=== PATIENT | male | born 1945 | race Caucasian/White ===

== ENCOUNTER 2016-11-25 09:16 | Outpatient (CLI) | payer MEDICARE ==
[2016-11-25 09:46] LABS: Anion Gap 18 mmol/L (10-20); BUN (Urea Nitrogen) 16 mg/dL (8.4-25.7); Calc. Creatinine Clearance 0 mL/min (70-130); Calcium 9.7 mg/dL (7.8-10.44); Carbon Dioxide 23 mmol/L (23-31); Chloride 100 mmol/L (98-107); Estimated GFR-MDRD 88; Glucose 113 mg/dL (83-110); Sodium 137 mmol/L (136-145)
== END 2016-11-25 09:17 | disposition home or self-care (01) ==
LOC: MADLAB 09:16
PROVIDERS: ATTEND Internal Medicine Cardiovascular Disease
DX: I10 Essential (primary) hypertension (principal)
CPT/HCPCS: 36415; 80048

== ENCOUNTER 2020-12-03 10:56 | Outpatient (CLI) | payer MEDICARE ==
[2020-12-03 11:49] LABS: Anion Gap 15 mmol/L (10-20); BUN (Urea Nitrogen) 15 mg/dL (8.4-25.7); Calc. Creatinine Clearance 0 mL/min (70-130); Calcium 9.2 mg/dL (7.8-10.44); Carbon Dioxide 24 mmol/L (23-31); Chloride 104 mmol/L (98-107); Glucose 99 mg/dL (83-110); Potassium 4.2 mmol/L (3.5-5.1); Sodium 139 mmol/L (136-145)
== END 2020-12-03 10:57 | disposition home or self-care (01) ==
LOC: MADLAB 10:56
PROVIDERS: ATTEND Internal Medicine Cardiovascular Disease
DX: I50.32 Chronic diastolic (congestive) heart failure (principal)
CPT/HCPCS: 36415; 80048

== ENCOUNTER 2025-07-17 12:12 | Outpatient (CLI) | payer MEDICARE ==
[2025-07-17 13:06] LABS: Albumin 4.4 g/dL (3.1-4.5); Alkaline Phosphatase 87 U/L (40-110); Anion Gap 16 mmol/L (10-20); BUN (Urea Nitrogen) 19 mg/dL (8.4-25.7); Bilirubin, Direct 0.4 mg/dL (0.1-0.3); Bilirubin, Total 0.9 mg/dL (0.3-1.2); Calc. Creatinine Clearance 0 mL/min (70-130); Calcium 8.9 mg/dL (7.8-10.44); Carbon Dioxide 24 mmol/L (23-31); Chloride 103 mmol/L (98-107); Cholesterol 102 mg/dl (< 200 Desired); Glucose 114 mg/dL (83-110); Potassium 3.8 mmol/L (3.5-5.1); Sodium 139 mmol/L (136-145)
[2025-07-17 13:07] LABS: ALT (SGPT) 13 U/L (Less than 45); AST (SGOT) 17 U/L (11-34); Cardiac Risk 3.3 (Less than 4.5); HDL Cholesterol 31 mg/dL (>60 Neg Risk); LDL Cholesterol, Calculated 32 mg/dL; Triglycerides 193 mg/dL (Less than 150)
== END 2025-07-17 12:13 | disposition home or self-care (01) ==
LOC: MADLAB 12:12
PROVIDERS: ATTEND Internal Medicine Cardiovascular Disease
DX: E78.2 Mixed hyperlipidemia (principal)
CPT/HCPCS: 36415; 80048; 80061; 80076